=== PATIENT | female | born 1995 | race Two or more races ===

== ENCOUNTER 2024-07-18 18:26 | Emergency (ER) | payer MEDICAID, OTHER ==
[~2024-07-18] VITALS: Ht 167.6 cm; Wt 56.3 kg
--- NOTE | 2024-07-18 19:26 | ED.PDOC ---
Musculoskeletal HPI Comments 28-year-old female presents to ER with complaints of right ankle pain x1 day. Patient reports that she started experiencing pain/swelling to right lateral ankle at 10:00 p.m. last night s/p rolling her right ankle inwards while walking her dog. She rates her current pain a 5/10 to right lateral ankle without radiation. Denies use of medications for current symptoms. Patient presents to ER ambulatory on arrival, favoring left leg on ambulation and notes she does have intermittent numbness/tingling to right foot. Denies right foot pain, falling or any further symptoms/complaints Chief Complaint: Lower Extremity Time Seen by MD: 18:30 Primary Care Provider: UNKNOWN Reviewed Notes: Nurses Notes, Medications, Allergies Allergies: Coded Allergies: NO KNOWN ALLERGIES (Unverified , 07/18/24) Home Meds Active Scripts Acetaminophen (Acetaminophen) 500 Mg Tab, 500 MG PO Q4HPRN, #30 TAB 0 Refills Prov:DILANJONOKIMBERLYN 07/18/24 Information Source: Patient Mode of Arrival: Ambulatory Past Medical History PAST MEDICAL HISTORY: Denies Surgical History: Denies all surgeries [facility] 07-05-24 Family History Family History: Unknown Social History Smoker: Non-Smoker Alcohol: Denies ETOH Use Drugs: Denies Drug Use Lives In: Home Constitutional: denies: chills, diaphoresis, fatigue, fever, malaise, sweats, weakness, others EENTM: denies: blurred vision, double vision, ear bleeding, ear discharge, ear drainage, ear pain, ear ringing, eye pain, eye redness, hearing loss, mouth pain, mouth swelling, nasal discharge, nose bleeding, nose congestion, nose pain, photophobia, tearing, throat pain, throat swelling, voice changes, others Respiratory: denies: cough, hemoptysis, orthopnea, SOB at rest, shortness of breath, SOB with excertion, stridor, wheezing, others Cardiovascular: denies: chest pain, dizzy spells, diaphoresis, Dyspnea on exertion, edema, irregular heart beat, left arm pain, lightheadedness, palpitations, PND, syncope, others Gastrointestinal: denies: abdomen distended, abdominal pain, blood streaked bowels, constipated, diarrhea, dysphagia, difficulty swallowing, hematemesis, melena, nausea, poor appetite, poor fluid intake, rectal bleeding, rectal pain, vomiting, others Genitourinary: denies: abnormal vagina bleeding, burning, dyspareunia, dysuria, flank pain, frequency, hematuria, incontinence, pain, , vagina discharge , urgency, others Neurological: denies: dizziness, fainting, headache, left sided numbness, left sided weakness, numbness, paresthesia, pre-existing deficit, right sided numbness, right sided weakness, seizure, speech problems, tingling, tremors, weakness, others Musculoskeletal: reports: others (As stated in HPI) Integumetry: reports: others (As stated in HPI) Allergic/Immunocompromised: denies: Difficulty Healing, Frequent Infections, Hives, Itching, others Hematologic/Lymphatic: denies: anemia, blood clots, easy bleeding, easy bruising, swollen glands, others Endocrine: denies: excessive hunger, excessive sweating, excessive thirst, excessive urination, flushing, intolerance to cold, intolerance to heat, unexp lained weight gain, unexplained weight loss, others Psychiatric: denies: anxiety, bipolar disorder, depression, hopeless, panic disorder, schizophrenia, sleepless, suicidal, others Physical Exam General Appearance: Mild Distress (Due to right ankle pain) HEENT: PERRL/EOMI Neck: Full Range of Motion, Non-Tender, Normal Respiratory: Chest Non-Tender, Lungs Clear, No Accessory Muscle Use, No Respiratory Distress, Normal Breath Sounds Cardiovascular: No Murmur, No Gallop, Regular Rate/Rhythm Breast Exam: Deferred Gastrointestinal: NOT DONE Genitalia: Deferred Pelvic: Deferred Rectal: Deferred Extremities: Normal capillary refill, Normal range of motion Musculoskeletal : Extremity Location: Ankle (TTP/mild swelling noted to right lateral malleolus. No further skin changes noted. No TTP to right foot noted. Pulses intact. Patient favors left leg on ambulation due to pain localized to right lateral malleolus) Neurologic: Alert, home health travel pt II-XII nml as Tested, No Motor Deficits, Normal Mood Cerebellar Function: Normal Reflexes: Normal Skin: Dry, Normal Color, Warm Peripheral Pulses: 2+ dorsalis pedis (R), 2+ dorsalis pedis (L) Lymphatic: No Adenopathy Was a procedure done? Was a procedure done?: No Sedation Sedation?: No Differential Diagnosis EXT Differential Diagnosis: Fracture, Dislocation, Neurovascular injury X-Ray, Labs, Meds, VS Vital Signs Date Time Temp Pulse Resp B/P (MAP) Pulse Ox O2 Delivery O2 Flow Rate FiO2 07/18/24 19:33 98.3 106 18 131/73 (92) 95 98.3 07/18/24 19:33 106 18 95 Room Air 07/18/24 18:58 98.3 106 18 131/76 (94) 95 98.3 PATIENT: FARHAN ATKINSONCCT: [id number]: [id number] : 1995 LOC: ER ROOM / BED: / AGE / SEX: 28 / F ADM STATUS: REG ER SERVICE 23 ORDERING PHYSICIAN: KIMBERLYN SARKAR PROCEDURE(s): RANKL - R ANKLE 3 VIEW REASON: right ankle pain ORDER NUMBER(s): [id number], ACCESSION NUMBER(s): [id number] CLINICAL INDICATION: right ankle pain TECHNIQUE: XY R ANKLE 3 VIEW Comparison: None FINDINGS: Evidence of mild soft tissue swelling overlying lateral malleolus and small ankle joint effusion. No evidence of fracture or dislocation. Ankle mortise appears unremarkable. IMPRESSION: No evidence of fracture or dislocation. ATED BY: AMADOR MONTERO MD DICTATED DATE/TIME: 07/18/241958 SIGNED BY: AMADOR MONTERO MD SIGNED DATE/TIME: 07/18/241958 CC: waiver sign Patient neurovascularly intact Aneesh wrap applied Crutches ordered, patient educated on proper use. Was advised on use at all times Advised on rest/no strenuous activity, elevation and alternate ice on/off as needed for pain/swelling Advised to follow up with PCP and orthopedics in 1-2 days Patient verbalized understanding and agreeable with current plan of care Advised to return to ER immediately if symptoms worsen Images Reviewed?: Images reviewed and evaluated by me Time of 1ST Reevaluation: 19:02 Reevaluation 1ST: N/A Patient Education/Counseling: Diagnosis, Treatment, Prognosis, Need For Follow Up Family Education/Counseling: No Family Present Departure 1 Departure Time of Disposition: 19:22 Impression: Primary Impression: Right ankle sprain Qualified Codes: S93.401A - Sprain of unspecified ligament of right ankle, initial encounter Disposition: HOME / SELF CARE / HOMELESS Condition: Stable e-Prescriptions Acetaminophen (Acetaminophen) 500 Mg Tab 500 MG PO Q4HPRN, #30 TAB 0 Refills Prov: KIMBERLYN SARKAR 07/18/24 Discharged With: Friend Critical Care Note Critical Care Time?: No Stability Stability form required: No Heart Score Heart Score: Heart Score Response (Comments) Value History N/A 0 EKG N/A 0 Age N/A 0 Risk Factors N/A 0 Troponin N/A 0 Total 0 KIMBERLYN SARKAR July 18, 2024 19:26
[2024-07-18 19:33] VITALS: BP 131/73; PULSE 106; RESP 18; TEMP 98.3; O2SAT 95
[2024-07-18] MEDS ORDERED: ACET500T58 PO (19:34)
--- NOTE | 2024-07-18 20:02 | DVH ---
CLINICAL INDICATION: right ankle pain TECHNIQUE: XY R ANKLE 3 VIEW Comparison: None FINDINGS: Evidence of mild soft tissue swelling overlying lateral malleolus and small ankle joint effusion. No evidence of fracture or dislocation. Ankle mortise appears unremarkable. IMPRESSION: No evidence of fracture or dislocation.
== END 2024-07-18 20:16 | disposition home or self-care (01) ==
LOC: ER 18:30
DX: S93.401A Sprain of unspecified ligament of right ankle, initial encounter (principal); X50.1XXA Overexertion from prolonged static or awkward postures, initial encounter; Y93.01 Activity, walking, marching and hiking; Y92.89 Other specified places as the place of occurrence of the external cause; Y99.8 Other external cause status
CPT/HCPCS: 73610